=== PATIENT | male | born 1945 | race Caucasian/White ===

== ENCOUNTER 2016-08-21 00:47 | Emergency (ER) | payer MEDICARE ==
[~2016-08-21] VITALS: Ht 157.5 cm; Wt 73.6 kg
[2016-08-21] MEDS ORDERED: ZESTRIL40 MG PO (00:59)
[2016-08-21] MEDS ORDERED: NORVASC5 M1 PO (01:00)
[2016-08-21] MEDS ORDERED: METFORMIN500 MG PO (01:00)
[2016-08-21 01:16] LABS: HEMATOCRIT 38.8 % (39.0-50.0); HEMOGLOBIN 12.5 g/dl (14.0-18.0); IMMATURE GRANULOCYTES 0.3 % (0.0-1.0); MEAN CELL VOLUME 82.2 fL CALC (80.0-100.0); MEAN CORPUSCULAR HGB 26.5 pG CALC (26.0-32.0); MEAN CORPUSCULAR HGB CONC 32.2 g/L CALC (32.0-36.0); NEUT# 8.84 thou/uL (1.82-7.42); RED BLOOD COUNT 4.72 mill/uL (4.70-6.10); RED CELL DISTRI WIDTH 13.2 % (11.5-15.5)
[2016-08-21 01:22] LABS: ALBUMIN 3.8 g/dL (3.2-5.0); ALKALINE PHOSPHATASE 118 u/l (38-126); AMYLASE 56 u/l (30-110); ANION GAP 16 (6-22 (CALC)); BILIRUBIN, TOTAL 0.8 mg/dL (0.0-1.4); BUN 15 mg/dL (8-23); BUN/CREATININE RATIO 18 (12-20 (CALC)); CALCIUM 8.3 mg/dL (8.4-10.2); CARBON DIOXIDE 29 mmol/l (22-30); CHLORIDE 98 mmol/l (95-108); CREATININE 0.9 mg/dL (0.7-1.3); GFR > 60 ML/MIN (>=60 (CALC)); GFR FOR AFR.AMER. > 60 ML/MIN (>=60 (CALC)); GLUCOSE 194 mg/dL (82-115); LIPASE 58 u/l (23-300); POTASSIUM 4.1 mmol/l (3.5-5.1); SGOT/AST 36 u/l (19-48); SGPT/ALT 35 u/l (11-66); SODIUM 139 mmol/l (137-146); TOTAL PROTEIN 7.7 g/dL (6.3-8.2)
[2016-08-21 01:35] LABS: MYOGLOBIN 120 ng/mL (0 - 121)
[2016-08-21 03:13] LABS: ACT PARTIAL THROMBO TIME 25.8 SECONDS (20.0-32.5); PROTHROMBIN TIME 11.1 SECONDS (9.0-12.5)
[2016-08-21 03:50] VITALS: BP 109/64
== END 2016-08-21 03:50 | disposition short-term general hospital (02) ==
LOC: ED 00:47
PROVIDERS: Emergency Medicine
DX: I21.4 Non-ST elevation (NSTEMI) myocardial infarction (principal); R07.9 Chest pain, unspecified; R11.2 Nausea with vomiting, unspecified; I10 Essential (primary) hypertension; R79.89 Other specified abnormal findings of blood chemistry; R10.13 Epigastric pain
CPT/HCPCS: Q9967

== ENCOUNTER 2019-05-07 10:35 | Day surgery (SDC) | payer MEDICARE ==
[~2019-05-07] VITALS: Ht 157.5 cm; Wt 79.4 kg
[~2019-05-07 10:35] MED LIST: ACIPHEX20 MG PO; ADULT ASPIRIN R81 MG PO; CARVEDILOL3.125 MG PO; CRESTOR20 MG PO; ENTRESTO 24-261 TAB PO; METFORMIN500 MG PO; NORVASC5 M1 PO; PROAIR RES108 MCG/AC IN; ZESTRIL40 MG PO
[2019-05-07] MEDS ORDERED: PERCOCET 5/325M1 TAB PO (16:13)
[2019-05-07 16:57] VITALS: BP 162/70
== END 2019-05-07 17:45 | disposition home or self-care (01) ==
LOC: ORM 10:35
PROVIDERS: ATTEND Urology
PROC: 0VB70ZZ Excision of Left Tunica Vaginalis, Open Approach (ICD-10-PCS; principal; 2019-05-07)
DX: N43.3 Hydrocele, unspecified (principal); N40.1 Benign prostatic hyperplasia with lower urinary tract symptoms; N13.8 Other obstructive and reflux uropathy; I11.0 Hypertensive heart disease with heart failure; I50.9 Heart failure, unspecified; Q60.0 Renal agenesis, unilateral; E11.9 Type 2 diabetes mellitus without complications; I25.2 Old myocardial infarction; I25.10 Atherosclerotic heart disease of native coronary artery without angina pectoris; J44.9 Chronic obstructive pulmonary disease, unspecified; F17.220 Nicotine dependence, chewing tobacco, uncomplicated; Z79.84 Long term (current) use of oral hypoglycemic drugs
CPT/HCPCS: J0131; J1100